=== PATIENT | female | born 1965 | race Caucasian/White ===

== ENCOUNTER → 2017-04-10 | Outpatient (CLI) | payer SELFPAY ==
[~2017-04-10] MED LIST: CREON 60000 U-11 ECC PO; DESYREL 50MG50 MG PO; GENFIBROZIL; NORCO 325 MG-51 TAB PO; PRIL40; SYNTHROID0.05 MG/TA PO; SYNTHROID0.112 MG/T PO; VALIUM 5MG T5 MG/TAB PO; ZOFRAN 4MG T4 MG/TAB PO
== END ==
LOC: MHCPAIN 14:16
DX: G89.29 Other chronic pain (principal); M47.27 Other spondylosis with radiculopathy, lumbosacral region
CPT/HCPCS: G0463

== ENCOUNTER → 2017-05-11 | Outpatient (CLI) | payer SELFPAY | LOC: MHCPAIN 14:03 | DX: Z01.89 Encounter for other specified special examinations (principal) ==

== ENCOUNTER → 2017-06-01 | Outpatient (CLI) | payer SELFPAY | LOC: MHCPAIN 09:36 | DX: M47.817 Spondylosis without myelopathy or radiculopathy, lumbosacral region (principal); M51.16 Intervertebral disc disorders with radiculopathy, lumbar region | CPT/HCPCS: J1100; J2250; J3010; Q9967 ==